=== PATIENT | female | born 1985 | race Caucasian/White ===

== ENCOUNTER 2020-10-26 17:45 | Emergency (ER) | payer OTHER, SELFPAY ==
[2020-10-26 17:50] VITALS: BP 141/85; PULSE 102; RESP 16; TEMP 37; O2SAT 95
--- NOTE | 2020-10-26 18:15 | ED.GENADULT ---
HPI - General Adult General Chief complaint: Wound/Laceration Stated complaint: Breast Issue Source: patient Mode of arrival: ambulatory Limitations: no limitations History of Present Illness HPI narrative: Radha is a 34F with a PMH of cellulitis/abscess of her breast, achilles tendon injury, and tobacco abuse that presented to the ED with 3-4 days of worsening pain and swelling in her left breast under the inferior portion of her areola. It feels like previous episodes of cellulitis. No fevers, chills, N/V, discharge, CP or SOB. Related Data Allergies Allergy/AdvReac Type Severity Reaction Status Date / Time Penicillins Allergy Unknown Verified 08/20/20 10:59 Review of Systems Constitutional: Constitutional: Reports no additional constitutional complaints Eyes: Eyes: Reports no additional eye complaints ENT: Reports system reviewed and no additional complaints, except as documented Cardiovascular: Cardiovascular: Reports no additional cardiovascular complaints Respiratory: Respiratory: Reports no additional respiratory complaints Gastrointestinal: Gastrointestinal: Reports no additional gastrointestinal complaints Genitourinary: Genitourinary: Reports no additional female genitourinary complaints Musculoskeletal: Musculoskeletal: Reports no additional musculoskeletal complaints Integumentary/Breasts: Skin/Breast: Reports as per HPI Neurologic: Reports system reviewed and no additional complaints, except as documented Psychiatric: Psychiatric: Reports no additional psychiatric complaints Endocrine: Endocrine: Reports no additional endocrine complaints Hematologic/Lymphatic: Hematologic/Lymphatic: Reports no additional hematologic/lymphatic complaints Allergic/Immunologic: Allergic/Immunologic: Reports no additional allergic/immunologic complaints [facility] Past Medical History Medical History Generalized anxiety disorder (12/27/13) Mgrn wo aura wo ntr mgr (02/01/12) Patient denies medical problems Surgical History Surgical History H/O tubal ligation Family History Family History Mother Healthy adult Father Heart disease Acute myocardial infarction Hypercholesteremia Social History Social History Smoking packs per day: 1 Smoking cigarettes per day: 20.0 Years smoked: 11 Smoking pack-years: 11.00 Smoking status: Current every day smoker Alcohol intake: current Substance use: never Substance use type: does not use Additional living arrangements comments: Additional occupation/education comments: sales Gender identity (if verbalized by the patient): Female Exam Const: General: no acute distress and alert Orientation/consciousness: patient oriented x3 Limitations: No altered mental status HENMT: Head: normal to inspection Mouth: Yes Normal oral and palatal mucosa present Eyes: Conjunctivae: conjunctivae normal Pupils: Equal, round and reactive pupils present Neck: Neck: normal visual inspection Chest: Other: TTP with induration on the inferior portion of the areola and just medial to it. Point of care ultrasonography did NOT reveal and fluid collection/abscess but did show cobblestoning Resp: Effort & Inspection: normal respiratory effort, not labored, no retractions and not tachypneic Cardio: Rate: regular rate Rhythm: regular rhythm GI: GI Palp: Yes Soft to palpation, No Tenderness to palpation present (GI) and No Guarding due to palpation present (GI) Skin: General skin exam: normal color Rashes: no rashes Neuro: General: patient oriented x3 and moves all extremities Extrem: General: normal to inspection Psych: Mental Status: mental status grossly normal Affect: normal affect Course Course Emergency Course: She w
[2020-10-26] MEDS: CLINDAMYCIN HCL 150 MG CAP 450 MG PO (18:19)
[2020-10-26 18:25] VITALS: RESP 16
== END 2020-10-26 18:26 | disposition home or self-care (01) ==
PROVIDERS: Emergency Provider Family Medicine; PCP Family Medicine
DX: N61.0 Mastitis without abscess (principal)
CPT/HCPCS: 99283; A9270

== ENCOUNTER 2020-10-30 18:16 | Emergency (ER) | payer OTHER, SELFPAY ==
[2020-10-30 18:23] VITALS: BP 134/86; PULSE 84; RESP 17; TEMP 36.7; O2SAT 96
--- NOTE | 2020-10-30 18:43 | ED.WOUNDLAC ---
HPI - Wound/Laceration General Chief Complaint: Wound/Laceration Stated Complaint: infection Source: patient Mode of arrival: ambulatory Limitations: no limitations History of Present Illness HPI narrative: patient with abscess located in the right breast right below the right nipple area with an area of induration and pain with drainage, the patient was seen 4 days ago in the emergency department and started on clindamycin, the area is currently draining with no fever chills, with some tenderness to the right breast area. Onset (ago): day(s) Location: other ( right breast) Place: home Related Data Allergies Allergy/AdvReac Type Severity Reaction Status Date / Time Penicillins Allergy Unknown Verified 08/20/20 10:59 Review of Systems Review of Systems: All systems reviewed & are unremarkable except as noted in HPI and below PMFSH Past Medical History Medical History Generalized anxiety disorder (12/27/13) Mgrn wo aura wo ntrc mgr (02/01/12) Patient denies medical problems Surgical History Surgical History H/O tubal ligation Family History Family History Mother Healthy adult Father Heart disease Acute myocardial infarction Hypercholesteremia Social History Social History Smoking packs per day: 1 Smoking cigarettes per day: 20.0 Years smoked: 11 Smoking pack-years: 11.00 Smoking status: Current every day smoker Alcohol intake: current Substance use: never Substance use type: does not use Additional living arrangements comments: Additional occupation/education comments: sales Gender identity (if verbalized by the patient): Female Exam Const: General: no acute distress Orientation/consciousness: patient oriented x3 HENMT: Head: normal to inspection Eyes: Conjunctivae: conjunctivae normal Pupils: Equal, round and reactive pupils present EOM: EOMs intact bilaterally Neck: Neck: normal visual inspection, no lymphadenopathy and no meningeal signs Chest: Chest palpation & inspection: normal inspection of the chest Resp: Effort & Inspection: normal respiratory effort GI: GI Palp: Yes Soft to palpation Skin: Other: An area of induration on the right breast I below the right nipple with some drainage and firm and tender. Course Course Emergency Course: Patient here with a right breast abscess, did express some fluid from the abscess site currently on clindamycin advised to continue her clindamycin and will send mupirocin that she can use along with a warm compress and [id number] ibuprofen as needed. Vital Signs Vital signs: Vital Signs Temperature 36.7 C 10/30/20 18:23 Pulse Rate 84 10/30/20 18:23 Respiratory Rate 17 10/30/20 18:23 Blood Pressure 134/86 10/30/20 18:23 Pulse Oximetry 96 10/30/20 18:23 Temperature 36.7 C 10/30/20 18:23 Pulse Rate 84 10/30/20 18:23 Respiratory Rate 17 10/30/20 18:23 Blood Pressure 134/86 10/30/20 18:23 Pulse Oximetry 96 10/30/20 18:23 Critical Care Time Critical Care Time Critical Care Time: No Discharge Plan Discharge Clinical Impression: Abscess Patient Disposition: Home, Self-Care Condition: Stable Instructions: Antibiotic Form, Abscess (ED) Additional Instructions: advised to continue her current antibiotics, he use mupirocin as prescribed, warm compress to affected area along with ibuprofen as needed and follow-up with primary care physician within 1 week for further evaluation and treatment. Prescriptions: New mupirocin 2 % ointment 1 applic topical TID 7 Days Qty: 15 RF: 0 No Action clindamycin HCl 150 mg capsule 450 mg PO TID 5 Days Qty: 45 RF: 0 Follow-up/Referrals: Glenn Plascencia MD [Primary Care Provider] -
[2020-10-30 19:00] VITALS: RESP 16
== END 2020-10-30 19:00 | disposition home or self-care (01) ==
PROVIDERS: Emergency Provider Emergency Medicine; PCP Emergency Medicine
DX: N61.1 Abscess of the breast and nipple (principal)
CPT/HCPCS: 99283

== ENCOUNTER 2021-03-18 14:32 | Outpatient (CLI) | payer OTHER, SELFPAY ==
[2021-03-18 15:50] LABS: SARS-CoV-2 RNA PCR Negative (Negative)
== END 2021-03-18 14:33 | disposition home or self-care (01) ==
LOC: CHSLAB 14:35
PROVIDERS: PCP Family Medicine; Visit Provider Nurse Practitioner Family
DX: Z20.822 Contact with and (suspected) exposure to COVID-19 (principal)
CPT/HCPCS: C9803; U0003; U0005

== ENCOUNTER 2021-06-15 17:06 | Emergency (ER) | payer OTHER, SELFPAY ==
--- NOTE | ~2021-06-15 | CT_ITS ---
EXAMINATION: CT abdomen pelvis w con DATE: 06/15/2021 18:58 INDICATION: Left lower quadrant tenderness and pain TECHNIQUE: Computed tomography (CT) of the abdomen and pelvis was performed with 100 cc Omnipaque 350 intravenous contrast. The dose-length product was 720.93 mGy-cm. Automated exposure control and iter ative reconstruction technique were employed. COMPARISON: None. FINDINGS: Lung bases are unremarkable. Heart size is normal. No significant pleural or pericardial ef fusion. Fatty infiltration of the liver. The spleen, pancreas, adrenal glands and kidneys are unremarkable. G allbladder is present. Nonobstructive bowel gas pattern. No significant vascular abnormality. No lymp hadenopathy. No evidence for diverticulitis or appendicitis. No free air or free fluid. Gallbladder i s present. No acute osseous abnormality. IMPRESSION: 1. No acute abdominal abnormality. 2: Hepatic steatosis. 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
[2021-06-15 17:25] VITALS: BP 155/81; PULSE 90; RESP 16; TEMP 36.2; O2SAT 95
[2021-06-15 17:36] LABS: Add Urine Microscopic? YES; Appearance Urine Clear (Clear); Bilirubin Urine Negative (Negative); Blood Urine Negative (Negative); Color Urine Yellow (Yellow); Glucose Urine UA Negative (Negative); Ketones Urine Negative (Negative); Leukocyte Esterase Ur Trace (Negative); Nitrate Urine Negative (Negative); Protein Urine Negative (Negative); Specific Grav Ur 1.025 (1.010-1.020); Urobilinogen Urine 0.2 mg/dL (0.2-1.0)
--- NOTE | 2021-06-15 17:37 | ED.ABDPAIN ---
HPI - Abdominal Pain General Chief Complaint: Abdominal Pain Stated Complaint: lower abd pain, muscle cramps in back Time Seen by Provider: 06/15/21 17:37 Source: patient Mode of arrival: ambulatory Limitations: no limitations History of Present Illness HPI narrative: 35-year-old woman comes in today complaining of left lower quadrant pain that started approximately noon today. Patient states that it hurts with palpation and with walking. She also had some back pain radiating down her leg earlier today. She has had some mild nausea but no fever, vomiting, dysuria, hematuria, constipation, vaginal bleeding or vaginal discharge. She has remote history of ovarian cysts and no history of urolithiasis. She is status post tubal ligation. Patient has no seafood or iodine allergy but had some vomiting after eating clam chowder. During that episode she had no mouth, tongue or throat swelling, difficulty breathing, rash or itching. MD elicited complaint: abdominal pain Pertinent past history: none Onset (ago): hour(s) (6) Pain Consistency: constant Location: LLQ Severity: severe Quality: sharp Radiation: none Migration to: no migration Exacerbating factors: movement Relieving factors: nothing Associated symptoms: nausea Related Data Date of Last Menstrual Period: 06/03/21 Allergies Allergy/AdvReac Type Severity Reaction Status Date / Time Penicillins Allergy Unknown Verified 08/20/20 10:59 Review of Systems Review of Systems: All systems reviewed & are unremarkable except as noted in HPI and below Constitutional: Constitutional: Denies chills and Denies fever(s) Eyes: Eyes: Denies change in vision and Denies photophobia ENT: Denies nasal congestion and Denies sore throat Cardiovascular: Cardiovascular: Denies chest pain and Denies radiating jaw, neck or arm pain Respiratory: Respiratory: Denies cough, Denies dyspnea and Denies wheezing Gastrointestinal: Gastrointestinal: Reports abdominal pain, Denies diarrhea, Reports nausea and Denies vomiting Genitourinary: Genitourinary: Denies abnormal vaginal bleeding, Denies hematuria, Denies nocturia, Denies dysuria and Denies vaginal discharge Musculoskeletal: Musculoskeletal: Reports back pain (Now resolved.), Denies arthralgias and Denies joint swelling Integumentary/Breasts: Skin/Breast: Denies pruritus, Denies erythema and Denies rash Neurologic: Denies vertigo, Denies dizziness and Denies syncope Hematologic/Lymphatic: Hematologic/Lymphatic: Denies easy bleeding and Denies easy bruising Allergic/Immunologic: Allergic/Immunologic: Denies lip swelling and Denies throat swelling PMFSH Past Medical History Medical History Generalized anxiety disorder (12/27/13) Mgrn wo aura wo ntrc mgr (02/01/12) Patient denies medical problems Surgical History Surgical History H/O tubal ligation Family History Family History Mother Healthy adult Father Heart disease Acute myocardial infarction Hypercholesteremia Social History Social History Smoking packs per day: 1 Smoking cigarettes per day: 20.0 Years smoked: 11 Smoking pack-years: 11.00 Smoking status: Current every day smoker Alcohol intake: current Alcohol use details: social Substance use: never Substance use type: does not use Additional living arrangements comments: Additional occupation/education comments: sales Gender identity (if verbalized by the patient): Female Exam Const: General: healthy appearing and alert Orientation/consciousness: patient oriented x3 Limitations: no limitations Other: Moderate acute distress. HENMT: Head: normal to inspection Ears: external ears normal, TM's normal bilaterally and EAC's normal General nose exam: No
[2021-06-15 17:43] LABS: Bacteria Urine Trace /hpf; RBC Urine 0-2 /hpf (0-2); Squamous Epithelial Cell Urine Moderate /hpf (Few)
[2021-06-15 18:01] LABS: Basophils Absolute Auto 0.08 K/mm3 (0.00-0.10); Basophils Percent Auto 0.7 % (0.0-1.0); Eosinophils Absolute Auto 0.19 K/mm3 (0.02-0.50); Eosinophils Percent Auto 1.6 % (1.0-6.0); Hematocrit 47.1 % (35.0-49.0); Hemoglobin 16.6 g/dL (12.0-15.0); Immature Granulocyte Absolute 0.04 K/mm3 (0.00-0.00); Immature Granulocyte Percent A 0.3 % (0.0-0.0); Lymphocytes Absolute Auto 4.06 K/mm3 (1.10-4.50); Lymphocytes Percent Auto 33.4 % (18.0-42.0); Mean Corpuscular HGB Conc 35.2 g/dL (32.0-36.0); Mean Corpuscular Volume 107.8 fL (78.0-102.0); Mean Platelet Volume 11.7 fl (9.2-11.8); Monocytes Absolute Auto 0.69 K/mm3 (0.10-0.90); Monocytes Percent Auto 5.7 % (2.0-11.0); Neutrophils Absolute Auto 7.1 K/mm3 (1.7-7.2); Neutrophils Percent Auto 58.3 % (50.0-70.0); Platelet Count Result 205 K/mm3 (150-420); Red Blood Count 4.37 M/mm3 (4.20-5.40); Red Cell Distribution Width 13.6 % (11.6-14.4); White Blood Count 12.1 K/mm3 (4.8-10.8)
[2021-06-15 18:16] LABS: Alanine Aminotransferase 30 U/L (14-59); Albumin Level 3.6 g/dL (3.4-5.0); Alkaline Phosphatase 79 U/L (46-116); Anion Gap 10 mmol/L (8-16); Aspartate Amino Transferase 17 U/L (15-37); Bilirubin,Total 0.5 mg/dL (0.00-1.00); Blood Urea Nitrogen 5 mg/dL (7-18); Calcium 8.7 mg/dL (8.5-10.1); Carbon Dioxide 26 mmol/L (21-32); Chloride 102 mmol/L (98-108); Estimated CRCL calculation 100 ml/min; Estimated Glomerular Filt Rate > 60; Glucose 92 mg/dL (70-99); Lipase 106 U/L (73-393); Osmolality Calculated 283 mOsm/kg (285-295); Sodium 138 mmol/L (136-145); Total Protein 7.3 g/dL (6.4-8.2)
[2021-06-15 18:21] LABS: Lactic Acid Reflex 0.8 mmol/L (0.4-2.0)
[2021-06-15] MEDS: SODIUM CHLORIDE 0.9% IV 1,000 ML 999 ML IV CONT (18:23)
[2021-06-15] MEDS: HYDROmorphone HCL INJ (*CRX) 2 MG/ML VIAL 0.5 MG IV PUSH (18:23)
[2021-06-15] MEDS: ONDANSETRON INJ 4 MG/2 ML VIAL IV PUSH (18:23)
[2021-06-15 19:38] VITALS: BP 140/70; PULSE 70; RESP 18; TEMP 36.6; O2SAT 98
== END 2021-06-15 19:38 | disposition home or self-care (01) ==
PROVIDERS: Emergency Provider Emergency Medicine; PCP Family Medicine
DX: R10.32 Left lower quadrant pain (principal)
CPT/HCPCS: 36415; 74177; 80053; 81001; 83605; 83690; 85025; 96361; 96374; 96375; 99283; 99284; J1170; J2405; J7030; Q9967

== ENCOUNTER 2021-06-24 11:47 | Outpatient (CLI) | payer OTHER, SELFPAY ==
[2021-06-24 12:58] LABS: Influenza A QL RT-PCR Negative (Negative); Influenza B QL RT-PCR Negative (Negative); SARS-CoV-2 RNA PCR Positive (Negative)
== END 2021-06-24 11:48 | disposition home or self-care (01) ==
LOC: CHSLAB 11:50
PROVIDERS: PCP Family Medicine; Visit Provider Family Medicine
DX: U07.1 COVID-19 (principal)
CPT/HCPCS: 87502; C9803; U0003; U0005

== ENCOUNTER 2023-06-26 19:07 | Emergency (ER) | payer OTHER, MEDICAID, SELFPAY ==
--- NOTE | ~2023-06-26 | CT_ITS ---
EXAMINATION: CT soft tissue neck w con DATE: 06/26/2023 21:11 INDICATION: Throat pain and swelling. Patient not responding to antibiotics. TECHNIQUE: Computed tomography (CT) of the neck was performed with 75 mL Omnipaque-350 intravenous co ntrast. The dose-length product was 564.58 mGy-cm. Automated exposure control and iterative reconstru ction technique were employed. COMPARISON: None FINDINGS: No intracranial abnormality identified. Paranasal sinuses and mastoids are pneumatized. The mucosal and parapharyngeal spaces are normal. No significant airway effacement. Mildly prominent lef t cervical lymph nodes, likely reactive. Right hilar lymph node, likely reactive. Lung apices demonst rate mild emphysema. No abscess identified. No significant enlargement of the tonsils. Thyroid gland is unremarkable. IMPRESSION: 1. Mild left cervical and right hilar lymphadenopathy, likely reactive. 2: No evidence for peritonsillar abscess or significant airway abnormality. Reviewed, dictated and finalized at location A. [employer] CLERK
[2023-06-26 19:07] VITALS: BP 152/77; PULSE 77; RESP 16; TEMP 37.3; O2SAT 99
--- NOTE | 2023-06-26 19:28 | ED.GENADULT ---
HPI - General Adult General Chief complaint: Unspecified Stated complaint: facial swelling Time Seen by Provider: 06/26/23 19:17 History of Present Illness HPI narrative: Radha is a 37F with a PMH of tobacco abuse that presented to the ED with continued throat pain and swelling despite being on clindamycin for 5 days. It is very panful to swallow but she is able to do so. There is no fever, dyspnea, or systemic symptoms. Related Data Allergies Allergy/AdvReac Type Severity Reaction Status Date / Time Penicillins Allergy Unknown Verified 06/23/23 14:56 Review of Systems Review of Systems: All systems reviewed & are unremarkable except as noted in HPI and below PMFSH Past Medical History Medical History Generalized anxiety disorder (12/27/13) Mgrn wo aura wo ntrc mgr (02/01/12) Patient denies medical problems Surgical History Surgical History H/O tubal ligation Family History Family History Mother Healthy adult Father Heart disease Acute myocardial infarction Hypercholesteremia Social History Social History Smoking packs per day: 1 Smoking cigarettes per day: 20.0 Years smoked: 11 Smoking pack-years: 11.00 Smoking status: Current every day smoker Alcohol intake: current Alcohol use details: social Substance use: never Substance use type: does not use Living arrangements: with family Additional living arrangements comments: Occupation/Education: occupation Additional occupation/education comments: sales Gender identity (if verbalized by the patient): Female Exam Const: General: cooperative, healthy appearing, comfortable, no acute distress, well developed, alert, awake and Physically active Orientation/consciousness: oriented to person, oriented to place and oriented to time HENMT: Head: normal to inspection, normocephalic and atraumatic Ears: hearing grossly normal bilaterally and external ears normal Face/Nose/Sinus: Normal external nose present Other: right anterior cervical lymphadenopathy Eyes: General: appearance normal, both eyes and all related structures Periorbital: periorbital findings normal Sclera: sclerae normal Pupils: Equal, round and reactive pupils present Neck: Neck: normal visual inspection Chest: Chest palpation & inspection: normal inspection of the chest Resp: Effort & Inspection: normal respiratory effort, able to speak in complete sentences and no respiratory distress Auscultation: clear to auscultation bilaterally Cardio: Jugular venous distension: no JVD Rate: regular rate Rhythm: regular rhythm GI: Inspection: normal to inspection GI Palp: Yes Soft to palpation Auscultation: normal bowel sounds Skin: General skin exam: normal color and no rashes or lesions noted Neuro: General: oriented to person, oriented to place and oriented to time Cranial nerves: Yes Equal, round and reactive pupils present Extrem: General: normal to inspection Course Course Emergency Course: ordered Toradol for the pain as well as labs and CT. Labs showed mild leukocytosis but were otherwise unremarkable. EXAMINATION: CT soft tissue neck w con DATE: 06/26/2023 21:11 INDICATION: Throat pain and swelling. Patient not responding to antibiotics. TECHNIQUE: Computed tomography (CT) of the neck was performed with 75 mL Omnipaque-350 intravenous contrast. The dose-length product was 564.58 mGy-cm. Automated exposure control and iterative reconstruction technique were employed. COMPARISON: None FINDINGS: No intracranial abnormality identified. Paranasal sinuses and mastoids are pneumatized. The mucosal and parapharyngeal spaces are normal. No significant airway effacement. Mildly prominent left cervical lymph nodes, likel
[2023-06-26] MEDS: KETOROLAC 30 MG/ML VIAL (*BKC) IM (19:45)
[2023-06-26 20:25] LABS: Basophils Absolute Auto 0.07 K/mm3 (0.00-0.10); Basophils Percent Auto 0.6 % (0.0-1.0); Eosinophils Absolute Auto 0.24 K/mm3 (0.02-0.50); Hematocrit 47.6 % (35.0-49.0); Hemoglobin 16.6 g/dL (12.0-15.0); Immature Granulocyte Absolute 0.04 K/mm3 (0.00-0.00); Immature Granulocyte Percent A 0.3 % (0.0-0.0); Lymphocytes Absolute Auto 4.31 K/mm3 (1.10-4.50); Lymphocytes Percent Auto 36.6 % (18.0-42.0); Mean Corpuscular HGB Conc 34.9 g/dL (32.0-36.0); Mean Corpuscular Hemoglobin 38.2 pg (27.0-31.0); Mean Corpuscular Volume 109.4 fL (78.0-102.0); Mean Platelet Volume 11.4 fl (9.2-11.8); Monocytes Absolute Auto 0.86 K/mm3 (0.10-0.90); Monocytes Percent Auto 7.3 % (2.0-11.0); Neutrophils Absolute Auto 6.3 K/mm3 (1.7-7.2); Neutrophils Percent Auto 53.2 % (50.0-70.0); Platelet Count Result 231 K/mm3 (150-420); Red Blood Count 4.35 M/mm3 (4.20-5.40); Red Cell Distribution Width 13.8 % (11.6-14.4); White Blood Count 11.8 K/mm3 (4.8-10.8)
[2023-06-26 20:42] LABS: Alanine Aminotransferase 26 U/L (14-59); Albumin Level 3.8 g/dL (3.4-5.0); Alkaline Phosphatase 91 U/L (46-116); Anion Gap 5 mmol/L (8-16); Aspartate Amino Transferase 20 U/L (15-37); Bilirubin,Total 0.3 mg/dL (0.00-1.00); Blood Urea Nitrogen 4 mg/dL (7-18); Calcium 8.8 mg/dL (8.5-10.1); Carbon Dioxide 32 mmol/L (21-32); Chloride 103 mmol/L (98-108); Estimated CRCL calculation 88 ml/min; Estimated Glomerular Filt Rate > 60; Glucose 95 mg/dL (70-99); Osmolality Calculated 286 mOsm/kg (285-295); Potassium 4.2 mmol/L (3.5-5.1); Sodium 140 mmol/L (136-145); Total Protein 7.6 g/dL (6.4-8.2)
[2023-06-26 20:46] LABS: Lactic Acid Reflex 1.1 mmol/L (0.4-2.0)
[2023-06-26 20:51] LABS: CRP < 0.5 mg/dL (0.0-0.9)
[2023-06-26 21:41] VITALS: BP 136/72; PULSE 88; RESP 18; TEMP 36.6; O2SAT 97
== END 2023-06-26 21:43 | disposition home or self-care (01) ==
PROVIDERS: Emergency Provider Family Medicine; PCP Family Medicine
DX: R59.1 Generalized enlarged lymph nodes (principal); J43.9 Emphysema, unspecified; F17.210 Nicotine dependence, cigarettes, uncomplicated
CPT/HCPCS: 36415; 70491; 80053; 83605; 85025; 86140; 96372; 99284; J1885; Q9967

== ENCOUNTER 2023-09-03 16:44 | Emergency (ER) | payer BC, SELFPAY ==
[2023-09-03 16:44] VITALS: BP 158/91; PULSE 91; RESP 16; TEMP 37.3; O2SAT 99
--- NOTE | 2023-09-03 16:59 | ED.EAR ---
HPI - Ear Problem General Chief complaint: Ear Stated complaint: facial swelling Time Seen by Provider: 09/03/23 16:58 Source: patient Mode of arrival: ambulatory Limitations: no limitations History of Present Illness HPI Narrative: this is a 37-year-old female that presents with some ear pain with pressure with frontal sinus tenderness with maxillary sinus tenderness and a postnasal drip with no fever chills no shortness of breath. The patient was seen by her primary and was started on Augmentin. Patient continues to have pain with pressure in her bilateral ears and frontal sinus area. Complaint: ear pain Location: bilateral Duration: constant Severity: moderate Exacerbating factors: chewing and position of head Context: Reports recent illness Related Data Allergies Allergy/AdvReac Type Severity Reaction Status Date / Time No Known Allergies Allergy Verified 09/01/23 13:16 Review of Systems Review of Systems: All systems reviewed & are unremarkable except as noted in HPI and below PMFSH Past Medical History Medical History Generalized anxiety disorder (12/27/13) Mgrn wo aura wo ntrc mgr (02/01/12) Patient denies medical problems Surgical History Surgical History H/O tubal ligation Family History Family History Mother Healthy adult Father Heart disease Acute myocardial infarction Hypercholesteremia Social History Social History Smoking packs per day: 1 Smoking cigarettes per day: 20.0 Years smoked: 11 Smoking pack-years: 11.00 Smoking status: Current every day smoker Alcohol intake: current Alcohol use details: social Substance use: never Substance use type: does not use Living arrangements: with family Additional living arrangements comments: Occupation/Education: occupation Additional occupation/education comments: sales Gender identity (if verbalized by the patient): Female Exam Const: General: healthy appearing Nutritional Appearance: well nourished Orientation/consciousness: patient oriented x3 Limitations: no limitations HENMT: Other: Frontal maxillary sinus tenderness palpation with diet bilateral ear dullness with bilateral turbinates red swollen erythematous. Eyes: Conjunctivae: conjunctivae normal Neck: Neck: normal visual inspection and lymphadenopathy Other: Tender bilateral lymphadenopathy submandibular Chest: Chest palpation & inspection: normal inspection of the chest Resp: Effort & Inspection: normal respiratory effort Auscultation: clear to auscultation bilaterally Cardio: Rate: regular rate Rhythm: regular rhythm GI: GI Palp: Yes Soft to palpation Course Course Emergency Course: patient was prescribed Augmentin by her primary and advised to continue her Augmentin. Follow with primary after a week if symptoms persist or worsen. Otherwise diagnosed with a sinus infection and recommendations and prescriptions given. Critical Care Time Critical Care Time Critical Care Time: No Discharge Plan Discharge Clinical Impression: Sinusitis Patient Disposition: Home, Self-Care Condition: Stable Instructions: Antibiotic Form, Sinusitis (ED) Additional Instructions: advised to continue antibiotics as prescribed by your primary. Can take Claritin D [id number] twice daily x3 days, and after the Claritin D can take regular Claritin 10mg daily times 7 days. Take medicine as prescribed and can take [id number] ibuprofen or Tylenol as needed. Prescriptions: New fluticasone propionate [Flonase Allergy Relief] 50 mcg/actuation spray,suspension 2 spray intranasal DAILY Qty: 16 0RF Rx Instructions: administer into each nostril methylprednisolone [Medrol (Wild)] 4 m
== END 2023-09-03 17:09 | disposition home or self-care (01) ==
LOC: CHSED 17:06
PROVIDERS: Emergency Provider Emergency Medicine; PCP Family Medicine
DX: J32.9 Chronic sinusitis, unspecified (principal); F17.210 Nicotine dependence, cigarettes, uncomplicated
CPT/HCPCS: 99283

== ENCOUNTER 2024-01-27 09:45 | Outpatient (CLI) | payer BC, SELFPAY ==
[2024-01-27 09:59] LABS: Basophils Absolute Auto 0.06 K/mm3 (0.00-0.10); Basophils Percent Auto 0.7 % (0.0-1.0); Eosinophils Absolute Auto 0.16 K/mm3 (0.02-0.50); Hematocrit 45.5 % (35.0-49.0); Hemoglobin 15.8 g/dL (12.0-15.0); Immature Granulocyte Absolute 0.02 K/mm3 (0.00-0.00); Immature Granulocyte Percent A 0.2 % (0.0-0.0); Lymphocytes Absolute Auto 3.17 K/mm3 (1.10-4.50); Lymphocytes Percent Auto 38.8 % (18.0-42.0); Mean Corpuscular HGB Conc 34.7 g/dL (32-36); Mean Corpuscular Hemoglobin 37.1 pg (27.0-31.0); Mean Corpuscular Volume 106.8 fL (78.0-102.0); Monocytes Absolute Auto 0.57 K/mm3 (0.10-0.90); Neutrophils Percent Auto 51.3 % (50.0-70.0); Platelet Count Result 206 K/mm3 (150-420); Red Blood Count 4.26 M/mm3 (4.20-5.40); Red Cell Distribution Width 13.6 % (11.6-14.4); White Blood Count 8.2 K/mm3 (4.8-10.8)
[2024-01-27 10:10] LABS: Hemoglobin A1C 5.5 % (<5.7)
[2024-01-27 10:43] LABS: Alanine Aminotransferase 37 U/L (14-59); Albumin Level 3.6 g/dL (3.4-5.0); Alkaline Phosphatase 61 U/L (46-116); Anion Gap 9 mmol/L (4-12); Aspartate Amino Transferase 34 U/L (15-37); Bilirubin,Total 0.4 mg/dL (0.00-1.00); Blood Urea Nitrogen 7 mg/dL (7-18); Calcium 8.9 mg/dL (8.5-10.1); Carbon Dioxide 28 mmol/L (21-32); Chloride 102 mmol/L (98-108); Cholesterol 212 mg/dL (0-200); Estimated Glomerular Filt Rate > 60; Glucose 112 mg/dL (70-99); HDL Direct 27 mg/dL (40-60); LDL Cholesterol Calculated 144 mg/dL (<130); Osmolality Calculated 287 mOsm/kg (285-295); Sodium 139 mmol/L (136-145); Total Protein 6.6 g/dL (6.4-8.2); Triglycerides 203 mg/dL (0-150)
[2024-01-27 11:05] LABS: Thyroid Stimulating Hormone Reflex 0.74 u/IU/mL (0.36-3.74)
== END 2024-01-27 09:46 | disposition home or self-care (01) ==
LOC: CHSLAB 09:46
PROVIDERS: PCP Family Medicine; Visit Provider Family Medicine
DX: Z00.00 Encounter for general adult medical examination without abnormal findings (principal); E11.9 Type 2 diabetes mellitus without complications; E03.9 Hypothyroidism, unspecified
CPT/HCPCS: 36415; 80053; 80061; 83036; 84443; 85025

== ENCOUNTER 2025-06-10 07:38 | Emergency (ER) | payer BC, SELFPAY ==
[2025-06-10 07:40] VITALS: BP 172/96; PULSE 77; RESP 18; TEMP 36.6; O2SAT 96
--- NOTE | 2025-06-10 07:48 | ED.NECK ---
HPI - Neck Pain/Injury General Chief Complaint: Neck Pain/Injury Stated Complaint: neck pain Time Seen by Provider: 06/10/25 07:41 Source: patient Mode of arrival: ambulatory History of Present Illness HPI Narrative: 39-year-old otherwise healthy here with the complaints of left-sided neck pain for past 2 days. Patient states that she woke up with pain. Every time she turns the head and has pain. Denies any trauma orl lifting heavy weights no at tingling or numbness in the arms. complaint: neck pain Onset (ago): day(s) (2) Place: home Radiation: left lateral Severity: moderate Quality: dull Duration: constant Relieving factors: none Exacerbating factors: movement of neck Context: fall Associated symptoms: none Treatments prior to arrival: none Related Data Allergies Allergy/AdvReac Type Severity Reaction Status Date / Time No Known Allergies Allergy Verified 06/10/25 07:40 Review of Systems Review of Systems: All systems reviewed & are unremarkable except as noted in HPI and below Constitutional: Constitutional: Reports no additional constitutional complaints Eyes: Eyes: Reports no additional eye complaints ENT: Reports system reviewed and no additional complaints, except as documented Cardiovascular: Cardiovascular: Reports no additional cardiovascular complaints Respiratory: Respiratory: Reports no additional respiratory complaints Gastrointestinal: Gastrointestinal: Reports no additional gastrointestinal complaints Musculoskeletal: Musculoskeletal: Reports as per HPI Neurologic: Reports system reviewed and no additional complaints, except as documented PMFSH Past Medical History Medical History Generalized anxiety disorder (12/27/13) Mgrn wo aura wo ntrc mgr (02/01/12) Patient denies medical problems Surgical History Surgical History H/O tubal ligation Family History Family History Mother Healthy adult Father Heart disease Acute myocardial infarction Hypercholesteremia Social History Social History Smoking packs per day: 1 Smoking cigarettes per day: 20.0 Years smoked: 11 Smoking pack-years: 11.00 Smoking status: Current every day smoker Alcohol intake: current Alcohol use details: social Substance use: never Substance use type: does not use Living arrangements: with family Additional living arrangements comments: Occupation/Education: occupation Additional occupation/education comments: sales Gender identity (if verbalized by the patient): Female Exam Narrative: GENERAL: Well-appearing, well-nourished, and in no acute distress. HEAD: Normocephalic, atraumatic. EYES: PERRLA and EOMI. ENT: Nares clear, no rhinorrhea or epistaxis. Mucous membranes moist. NECK: Supple. CHEST: Clear to auscultation. No respiratory distress. HEART: Regular rate and rhythm. No murmur heard. Normal peripheral pulses. EXTREMITIES: Normal range of motion. No edema. SKIN: Warm, dry, no rash. NEURO: No focal deficits. Alert and oriented x3. PSYCH: Normal mood and affect. Course Course Emergency Course: informed pt about the diagnosis , advised her take meds as prescribed , she prefers ibuprofen and Toradol . Vital Signs Vital signs: Vital Signs Temperature 36.6 C 06/10/25 07:40 Pulse Rate 77 06/10/25 07:40 Respiratory Rate 18 06/10/25 07:40 Blood Pressure 172/96 H 06/10/25 07:40 Pulse Oximetry 96 06/10/25 07:40 Oxygen Delivery Room Air 06/10/25 07:40 Temperature 36.6 C 06/10/25 07:40 Pulse Rate 77 06/10/25 07:40 Respiratory Rate 18 06/10/25 07:40 Blood Pressure 172/96 H 06/10/25 07:40 Pulse Oximetry 96 06/10/25 07:40 Oxygen Delivery Room Air 06/10/25 07:40 Discharge Plan Discharge Clinical Impression: Torticollis, Elevated blood pressure reading Patient Disposition: Home Condition: Stable Instructions: Spasmodic Torticollis (ED) Additional Instructions: take medications as prescribed , follow with your doctorin 1 wk to recheck your blood pressure. Patient Language: Kyrgyz Prescriptions: New ibuprofen 600 mg tablet 600 mg PO Q6H PRN (Reason: pain) Qty: 20 0RF cyclobenzaprine 5 mg tablet 5 mg PO TID PRN (Reason: muscle spasm) Qty: 20 0RF Follow-up/Referrals: Marko Beatty DO [Primary Care Provider, [facility]] Time of Disposition: 08:06
[2025-06-10] MEDS: KETOROLAC 30 MG/ML VIAL (*BKC) IM (07:53)
[2025-06-10 08:04] VITALS: BP 158/95; PULSE 74; RESP 20; O2SAT 98
== END 2025-06-10 08:10 | disposition home or self-care (01) ==
PROVIDERS: Emergency Provider Family Medicine; PCP Family Medicine
DX: M43.6 Torticollis (principal); R03.0 Elevated blood-pressure reading, without diagnosis of hypertension; F17.210 Nicotine dependence, cigarettes, uncomplicated
CPT/HCPCS: 96372; 99283; J1885